=== PATIENT | female | born 1950 | race Caucasian/White ===

== ENCOUNTER 2018-05-01 14:09 | Emergency (ER) | payer OTHER ==
[~2018-05-01] VITALS: Ht 175.3 cm; Wt 88.9 kg
[2018-05-01 15:00] LABS: ABSOLUTE NEUTROPHILS 2.9 thou/uL (1.4-8.2); BASOPHILS 0.9 % (0.0-2.0); HEMATOCRIT 37.8 % (37.0-47.0); HEMOGLOBIN 13.1 gm/dL (12.0-15.0); LYMPHOCYTES 29.5 % (24.0-44.0); MCH 33.3 pg (26.0-34.0); MCHC 34.8 g/dL (28.0-37.0); MCV 95.7 fL (80.0-100.0); MONOCYTES 6.7 % (1.0-8.0); PLATELET COUNT 204 thou/uL (150-400); POLYS 60.9 % (36.0-66.0); RBC 3.95 mil/uL (4.20-5.00); RDW 13.8 % (10.5-14.5); WBC 4.8 thou/uL (4.0-11.0)
[2018-05-01 15:07] LABS: BUN 12 mg/dL (7-18); CALCIUM 8.5 mg/dL (8.5-10.1); CO2 23 mmol/L (21-32); CREATININE 0.9 mg/dL (0.6-1.0); GLUCOSE 73 mg/dL (74-106)
[2018-05-01 15:16] LABS: TROPONIN-I <0.06 ng/mL (<0.06)
[2018-05-01 15:23] LABS: ANION GAP 12 mmol/L (7-16); CHLORIDE 103 mmol/L (98-107); SODIUM 138 mmol/L (136-145)
[2018-05-01 15:24] LABS: POTASSIUM 2.9 mmol/L (3.5-5.1)
[2018-05-01] MEDS ORDERED: KLOR-CON 1010 MEQ PO (16:34)
[2018-05-01] MEDS ORDERED: MAGOX 400400 MG PO (16:34)
[2018-05-01 17:42] VITALS: BP 106/91
--- NOTE | 2018-05-02 10:58 | EKG ---
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 : 1950 Requested By: Raudel Adams Order Number: [id number] MD: Ankush Nicole Measurements Intervals [place] Rate: 88 P: 55 WV: 226 QRS: 82 QRSD: 105 T: 11 QT: 376 QTc: 455 Interpretive Statements Sinus rhythm Prolonged WV interval No previous ECG available for comparison Electronically Signed On 05-02-2018 10:58:05 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
== END 2018-05-01 17:45 | disposition home or self-care (01) ==
LOC: ER 14:09
PROVIDERS: Emergency Medicine
DX: I47.1 Supraventricular tachycardia (principal); E87.6 Hypokalemia; E83.42 Hypomagnesemia; G43.909 Migraine, unspecified, not intractable, without status migrainosus; Z88.2 Allergy status to sulfonamides

== ENCOUNTER → 2018-05-24 | Outpatient (CLI) | payer OTHER ==
[~2018-05-24] MED LIST: KLOR-CON 1010 MEQ PO; MAGOX 400400 MG PO
== END ==
LOC: CAT 09:11
DX: Z13.6 Encounter for screening for cardiovascular disorders (principal); E78.00 Pure hypercholesterolemia, unspecified; I25.10 Atherosclerotic heart disease of native coronary artery without angina pectoris

== ENCOUNTER → 2018-05-24 | Outpatient (CLI) | payer OTHER, BC | LOC: NUC 15:16 | DX: Z12.31 Encounter for screening mammogram for malignant neoplasm of breast (principal); M85.88 Other specified disorders of bone density and structure, other site; Z78.0 Asymptomatic menopausal state ==

== ENCOUNTER → 2019-12-16 | Outpatient (CLI) | payer OTHER, BC ==
[~2019-12-16] MED LIST changes: +ASA81BEC PO; +ULTRAM 50MG TAB50 MG PO
== END ==
LOC: LAB 11:45
PROVIDERS: ATTEND Orthopaedic Surgery
DX: Z20.828 Contact with and (suspected) exposure to other viral communicable diseases (principal)

== ENCOUNTER 2019-12-21 09:07 | Observation (INO) | payer OTHER, BC ==
[2019-12-16 12:35] LABS: HEMATOCRIT 41.2 % (37.0-47.0); HEMOGLOBIN 13.9 gm/dL (12.0-15.0); MCH 32.5 pg (26.0-34.0); MCHC 33.8 g/dL (28.0-37.0); MCV 96.1 fL (80.0-100.0); RBC 4.28 mil/uL (4.20-5.00); RDW 14.9 % (10.5-14.5); WBC 4.5 thou/uL (4.0-11.0)
[2019-12-16 12:51] LABS: ALBUMIN 3.9 g/dL (3.4-5.0); CALCIUM 8.9 mg/dL (8.5-10.1); CREATININE 0.8 mg/dL (0.6-1.0); POTASSIUM 4.2 mmol/L (3.5-5.1)
[2019-12-16 13:01] LABS: URINE BILIRUBIN NEGATIVE (Negative); URINE BLOOD NEGATIVE (Negative); URINE CLARITY CLEAR; URINE COLOR YELLOW; URINE GLUCOSE-RANDOM* NEGATIVE (Negative); URINE KETONES TRACE (Negative); URINE LEUKOCYTES-REFLEX NEGATIVE (Negative); URINE NITRITE-REFLEX NEGATIVE (Negative); URINE PROTEIN (DIPSTICK) NEGATIVE (Negative); URINE UROBILINOGEN 0.2 E.U./dl (0.2-1.0)
[~2019-12-21] VITALS: Ht 172.7 cm; Wt 88.9 kg
--- NOTE | ~2019-12-21 | O ---
[facility] [place] [address] OPERATIVE REPORT Name: ALLYSSA VOSS Room #: 445-P [facility] M.R.#: [id number] Admission: 01/17/20 Attend Phys: Geovanny Núñez MD Discharge: Date of : 48 Report #: [id number] THIS REPORT FOR: cc: Marcell Cortes,Marcell Núñez,Geovanny Frederick MD ~ CC: Marcell Núñez DATE OF SERVICE: 01/17/2020 PREOPERATIVE DIAGNOSIS: Right knee osteoarthritis. POSTOPERATIVE DIAGNOSIS: Right knee osteoarthritis. PROCEDURE: Right total knee arthroplasty using Navio robotic assistance. SURGEON: Geovanny Núñez MD. DESIGN SUPERVISOR: Carmen Dave PA-C. INDICATIONS FOR DESIGN SUPERVISOR: Throughout the case, extensive retraction and manipulation of the knee was required. This was afforded to me by my botany laboratory assistant. ANESTHESIA: LMA with an adductor canal block. IMPLANTS: [employer]hew size 5 Journey II BCS cobalt chrome femur, size 4 tibia, size 35 patella and a size 10 polyethylene. TOURNIQUET TIME: 49 minutes. ESTIMATED BLOOD LOSS: 25 mL. COMPLICATIONS: None. SPECIMENS: None. CONDITION UPON LEAVING THE OPERATING ROOM: Stable. INDICATIONS FOR PROCEDURE: The patient is a 69-year-old female with right knee osteoarthritis. She had failed conservative measures for this and after discussion with her, she elected for right total knee arthroplasty. DESCRIPTION OF PROCEDURE: Risks, benefits, alternatives, complications were discussed in detail with the patient including but not limited to risk of anesthesia, risk of damage to nerves, arteries, blood vessels, risk for [facility] [address] [place] [address] OPERATIVE REPORT Name: ALLYSSA VOSS Room #: 445-P [facility] M.R.#: [id number] Admission: 01/17/20 Attend Phys: Geovanny Núñez MD Discharge: Date of : 48 Report #: [id number] infection, bleeding, risk for continued knee pain, need for reoperation. Informed consent was obtained from the patient. Right knee was appropriately marked in the preoperative holding area. IV Ancef was given for preoperative antibiotics. Adductor canal block was placed by Anesthesia. She was brought to the operating room and placed in supine position on the operating room table. LMA anesthesia was induced without complication. Tourniquet was placed on the right thigh. Right lower extremity was prepped and draped in normal sterile fashion. Timeout was performed properly identifying the patient and procedure as well as the instrumentation and implants. All in the operating room were in agreement. Right lower extremity was exsanguinated, tourniquet was inflated. Tourniquet time was 49 minutes. Standard midline approach to the knee was made with 10 blade through the skin. Dissection was taken down sharply to the fascia. Deep flaps were developed medially and laterally. Fresh 10 blade was used to make a medial parapatellar arthrotomy and the knee was inspected. There was severe tricompartmental osteoarthritis. ACL and PCL were removed sharply. Reference pins were placed in the femur and the tibia and the knee was then digitally mapped using the [employer] robotic system. Intraoperative plan was made and we sized the size 5 femur and a size 4 tibia and 10 spacer. After acceptance of the intraoperative plan, the distal femoral cut was made with a Navio bur. Distal femoral cutting block was pinned in place. Distal femoral chamfer cuts were made. Attention was turned to the tibia. Remainder of the menisci removed with Bovie cautery. Tibial resection guide was pinned in place using the Navio for placement. Tibial resection was made. After this, flexion and extension gaps were checked and found to have good balance in flexion and extension both medially and laterally. Tibia was sized, found to be a size 4. Size 4 tibial trial was placed, pinned and punched. A size 5 femoral trial was placed and the box cut was made. This was then trialed with a size 10 polyethylene. Size 10 polyethylene demonstrated 1-1.5 millimeter of laxity medially and laterally throughout range of motion of the knee. A 9 mm was resected from the posterior surface of the patella and a size 35 patellar trial button was placed. Knee was taken through range of motion, found to be stable, found to have good patellar tracking. Trial components were removed. Bony ends were thoroughly irrigated with normal saline. A final size 4 tibia, size 5 Journey II BCS cobalt chrome femur and a size 35 patella were cemented in place using standard cementation techniques. While the cement cured, a periarticular injection consisting of morphine, ropivacaine, epinephrine and Toradol was placed around the knee joint capsule. After the cement cured, tourniquet was deflated. Hemostasis was obtained with Bovie cautery. Final size 10 polyethylene was placed. A gram of vancomycin was placed deep in the joint. Fascia was closed with 0 Vicryl, skin was closed with 2-0 Vicryl, 3-0 Monocryl, Dermabond and a JUANITO dressing was applied. The patient tolerated this procedure well and went to recovery room under care of anesthesia postoperatively. By: 1210 1225 Geovanny Núñez MD /nt
[2020-01-17 07:58] VITALS: BP 125/83
[2020-01-17 12:14] VITALS: BP 119/72
[2020-01-17 13:10] VITALS: BP 111/70
--- NOTE | 2020-01-17 15:13 | NUR ---
PATIENT ADMITTED FROM OR WITH RIGHT TOTAL KNEE REPLACEMENT. JUANITO DRESSING, SCD'S, KNEE HIGH SASHA HOSE, AND POLAR CARE IN PLACE. PATIENT C/O PAIN WITH RIGHT KNEE, OXYCODONE 1 TABLET GIVEN DURING ADMISSION. PATIENT HAS LEFT FOREARM IV IN PLACE, IV FLUIDS STARTED AT 100CC/HR. VSS. NO C/O NAUSEA, REGULAR DIET STARTED FOR LUNCH. ADMISSION DONE, REPORT GIVEN TO FARZAD/RN.
[2020-01-17 15:45] VITALS: BP 106/62
[2020-01-17 20:20] VITALS: BP 110/73
[2020-01-17 21:20] VITALS: BP 110/73
[2020-01-18] VITALS (7 sets, daily range): BP systolic 94–104; BP diastolic 59–70
--- NOTE | 2020-01-18 05:41 | NUR ---
ASSUMED CARE OF PT AROUND 1900HRS. PT AOX4 AND LETS NEEDS BE KNOWN. FALL PERCAUTION IN PLACE. PT IS POST OP DAY 0 AND SURGICAL JUANITO DRESSING IS C/D/I. POLAR CARE IN PLACE. PT WAS ABLE TO AMULATE TO THE BATHROOM WITH SBA. PT REPORTED SOME PAIN AND ITCH, PRNS PROVIDED. PT WAS ABLE TO GET COMFORTABLE AND SLEEP PART OF THE SHIFT. VSS AND NO S/S OF ACUTE DISTRESS. WILL CONTINUE TO MONITOR.
[2020-01-18 06:14] LABS: HEMATOCRIT 34.8 % (37.0-47.0); HEMOGLOBIN 11.7 gm/dL (12.0-15.0); MCH 32.5 pg (26.0-34.0); MCHC 33.6 g/dL (28.0-37.0); MCV 96.8 fL (80.0-100.0); RBC 3.6 mil/uL (4.20-5.00); RDW 13.3 % (10.5-14.5); WBC 9.8 thou/uL (4.0-11.0)
--- NOTE | 2020-01-18 09:27 | NUR ---
ASSESSMENT: CM REVIEWED CHART AND SPOKE WITH PT. PT IS S/P RIGHT TOTAL KNEE REPLACEMENT. PT REPORTS LIVING IN AN APT ALONE. PT REPORTS ONE STEP TO ENTER AND NO STEPS ONCE INSIDE. PT REPORTS THAT SHE AMBULATES INDEPENDENTLY. PT HAS A WALKER AT HOME BUT IT DOES NOT ROLL. PT IS NEEDING A FWW. CM SPOKE WITH PT AND SHE HAS NO PREFERENCE OF [employer]. CM NOTIFIED PROVIDER PLUS WHO IS VERIFYING. PT REPORTS SHE HAS OUTPATIENT THERAPY ARRANGED AT [facility] TO START TOMORROW 01/18. PT REPORTS THAT HER EX IS VERY SUPPORTIVE AND WILL COME DAILY TO CHECK ON HER. PT REPORTS ALSO HAVING GOOD SUPPORT FROM HER [employer] COMMUNITY. PT IS TO CONTINUE TO WORK WITH THERAPY TODAY AND POSSIBLE DISCHARGE. CM WILL CONTINUE TO FOLLOW TO ASSIST NEEDED.
--- NOTE | 2020-01-18 16:44 | NUR ---
DISCHARGE PAPERS REVIEWED SIGNED AND COPY IN CHART. IV ACSESS DCD ALL BELONGINGS PACKED AND SENT WITH PATIENT. PATIENT WAS GIVEN RX'S AT PRE OP APPOINTMENT. PT IS PLEASANT AND COOPERATIVE WITH CARE.
--- NOTE | 2020-01-18 17:22 | NUR ---
PATIENT AT THIS TIME TAKEN TO MAIN ENTRANCE VIA W/C FOR DISCHARGE. WAS GIVEN PRN PAIN MED REQUESTED BEFORE DISCHARGE.
== END 2020-01-18 17:35 | disposition home or self-care (01) ==
LOC: ADMC 09:07 → 4S 01-17 07:14 → TBA 01-17 07:14 → ADMC 01-17 11:08 → 4S 01-17 12:05
PROVIDERS: ADMIT Orthopaedic Surgery; ATTEND Orthopaedic Surgery
DX: M17.11 Unilateral primary osteoarthritis, right knee (principal); I47.2 Ventricular tachycardia; E87.6 Hypokalemia; E83.42 Hypomagnesemia; Z79.82 Long term (current) use of aspirin; Z79.899 Other long term (current) drug therapy
CPT/HCPCS: 27447; S2900; 10102; 50010; 50101; 50415; 50954; 51130; 51225; 51320; 53000; 53078; 54118; 56527; 56528; 57095; 57103; 57110; 57127; 57180; 58239; 62110; 62900; 64039; 70005

== ENCOUNTER → 2019-12-26 | Outpatient (CLI) | payer OTHER, BC | LOC: LAB 08:08 | PROVIDERS: ATTEND Orthopaedic Surgery | DX: Z01.812 Encounter for preprocedural laboratory examination (principal); Z20.828 Contact with and (suspected) exposure to other viral communicable diseases ==

== ENCOUNTER → 2020-01-12 | Outpatient (CLI) | payer OTHER, BC | LOC: LAB 11:53 | PROVIDERS: ATTEND Orthopaedic Surgery | DX: Z01.812 Encounter for preprocedural laboratory examination (principal); Z20.828 Contact with and (suspected) exposure to other viral communicable diseases ==